=== PATIENT | male | born 1995 | race Caucasian/White ===

== ENCOUNTER 2020-01-01 21:27 | Emergency (ER) | payer SELFPAY ==
[2020-01-01 21:29] VITALS: BP 167/100; PULSE 117; RESP 17; TEMP 37.1; O2SAT 98; BMI 29.0
--- NOTE | 2020-01-01 21:43 | EKG12_ITS ---
Test Reason : CP Blood Pressure : / mmHG Vent. Rate : 110 BPM Atrial Rate : 110 BPM P-R Int : 140 ms QRS Dur : 086 ms QT Int : 342 ms P-R-T Axes : 038 040 019 degrees QTc Int : 462 ms Sinus tachycardia Otherwise normal ECG Confirmed by BRADY JHAVERI, [place] ([id number]), film editor JANELLE CID ([id number]) on 01/07/2020 8:13:20 AM Referred By: AYLEEN Confirmed By:[place] ABREU MD
--- NOTE | 2020-01-01 21:55 | RAD_ITS ---
STUDY: X-RAY CHEST REASON FOR EXAM: Male, 24 years old. CHEST PAIN TECHNIQUE: 1 view COMPARISON: None. FINDINGS: The lungs are clear and expanded. There is no demonstrated pleural abnormality. Normal size heart. Normal mediastinum and oleksandr. Normal visualized pulmonary arteries. Normal visualized aortic arch and descending thoracic aorta. Normal visualized thoracic spine. Normal visualized ribs, clavicles, and shoulders. There is no demonstrated abnormality of the visualized soft tissue structures of the upper abdomen. RAD/Chest 1 View (Portable) IMPRESSION: Normal x-ray examination of the chest. Electronically Signed: Anahi Mace MD at 22:22 EDT , Service support ,
[2020-01-01 22:07] LABS: Absolute Lymphocyte Count 2.76 X10^3/uL (0.83-4.51); Absolute Neutrophil Count 6.3 X10^3/uL (2.0-7.7); Basophil# 0.06 X10^3/uL; Basophil% 0.6 % (0-1); Eosinophil# 0.13 X10^3/uL; Eosinophils% 1.3 % (0-5); Hematocrit 47.9 % (40-54); Hemoglobin 16.6 g/dL (13.0-16.5); Lymphocyte # 2.76 X10^3/ul (4.0); Lymphocyte % 28.1 % (19-41); Mean Corp Hgb Conc 34.7 g/dL (32-36); Mean Corpuscular Hgb 30.4 pg (27.0-32.0); Mean Corpuscular Volume 87.7 fL (80-94); Mean Platelet Vol. 9.9 fl (6.2-12.0); Monocyte# 0.55 X10^3/uL; Monocyte% 5.6 % (0-10); NRBC Flagged by Analyzer 0 % (0-5); Neutrophil % 64.1 % (47-70); Platelet Count 260 K/mm3 (150-450); RBC Distribution Width CV 12.3 % (11.6-14.6); RBC Distribution Width SD 39.7 fl (35.1-43.9); Red Blood Count 5.46 M/mm3 (4.6-6.2); White Blood Count 9.8 K/mm3 (4.4-11.0)
[2020-01-01 22:14] VITALS: O2SAT 95
[2020-01-01 22:20] LABS: D-Dimer Quantitative (DVT/PE) < 0.27 FEU/ug/m (0.27-0.49)
[2020-01-01 22:21] LABS: Anion Gap 9 (5-15); BUN 15 mg/dL (7-18); BUN/Creat Ratio 13.6 RATIO (10-20); Calcium,Total 9.1 mg/dL (8.5-10.1); Chloride 107 mmol/L (98-107); EST Glomerular Filtration Rate 86 mL/min (>60); Est Glom Filt Rate - Afr Amer 104 mL/min (>60); Estimated Creatinine Clearance 95.14 ml/min; Glucose 109 mg/dL (74-106); Potassium 3.6 mmol/L (3.5-5.1); Sodium Level 142 mmol/L (136-145)
[2020-01-01 23:32] VITALS: BP 119/64; PULSE 75; RESP 16; O2SAT 96
--- NOTE | 2020-01-01 23:58 | ED.DCSUM_ITS ---
History of Present Illness Chief Complaint: Chest Pain Informant: Patient Onset: Today Narrative: 24-year-old male with no significant past medical history presents with chest pain. States he was at rest approximately 90 min ago when he felt a sharp pain in his chest. States it took his breath away. Was fleeting in nature. States it is happened 1 time since then. Denies any shortness of breath, nausea, vomiting, diaphoresis. Denies any history of DVT or pulmonary embolism. Patient is a current smoker. No family history of early cardiac disease. Past Medical History - Allergies and Home Meds Allergies/Adverse Reactions: Allergies No Known Allergies Allergy (Verified 01/01/20 21:28) Primary Care Physician: Care Physician,No Primary [Primary Care Provider] - Past Medical History: None Surgical History: no surgical history Lives: Spouse/ Significant Other Smoking Status: Current every day smoker Alcohol: None Drugs: None Review of Systems General: Denies: Chills, Fever, Sweats Eyes: Denies: Visual changes - bilaterally, Diplopia ENT: Denies: Rhinorrhea, Sore throat Cardiovascular: Reports: Chest pain. Denies: Palpitations Respiratory: Denies: Dyspnea, Cough, Dyspnea on exertion Gastrointestinal: Denies: Abdominal pain, Nausea, Vomiting, Diarrhea, Melena, Hematochezia Genitourinary: Denies: Dysuria, Hematuria, Frequency Musculoskeletal: Denies: Back pain, Extremity Pain Skin: Denies: Rash, Wounds Neurological: Denies: Headache, Weakness, Numbness Physical Exam Vital Signs/Narrative: Vital Signs Temp Pulse Resp BP Pulse Ox 01/01/20 23:32 75 16 119/64 96 01/01/20 22:14 95 01/01/20 21:29 98.8 F 117 H 17 167/100 H 98 Inital Vital Signs reviewed: Yes General: Well nourished, Well developed, No Acute Distress Head: Normocephalic, Atraumatic Eyes: Perrl, EOMI ENT: Moist mucous membranes, No rhinorrhea Neck: Supple, Nontender Cardiovascular: Regular rate, Regular rhythm, No murmurs Respiratory: No distress, CTA bilaterally, Chest nontender Abdomen: Soft, Nontender, Nondistended, Normal bowel sounds Back: Nontender, Normal Inspection Extremities: Nontender, No edema Skin: Normal color, No rash Neurological: Alert, Oriented x3, Cranial nerves II-XII grossly intact, Normal Strength, Normal Sensation Psychological: Normal affect, Normal Mood Diagnostic/Tx/Re-eval Chest X-Ray - ED: 1 View, Normal Clinical Impression(s) from Imaging Studies Chest X-Ray 01/01/20 21:55 IMPRESSION: Normal x-ray examination of the chest. Electronically Signed: Anahi Mace MD at 22:22 EDT , Service support , Laboratory Data 01/01/20 01/01/20 01/01/20 21:57 21:57 21:57 WBC 9.8 RBC 5.46 Hgb 16.6 H Hct 47.9 MCV 87.7 MCH 30.4 MCHC 34.7 RDW Std Deviation 39.7 RDW Coeff of Oma 12.3 Plt Count 260 MPV 9.9 Immature Gran % (Auto) 0.300 Neut % (Auto) 64.1 Lymph % (Auto) 28.1 [place] % (Auto) 5.6 Eos % (Auto) 1.3 Baso % (Auto) 0.6 Absolute Neuts (auto) 6.3 Absolute Lymphs (auto) 2.76 Nucleated RBC % 0 D-Dimer Quant (PE/DVT) < 0.27 L Sodium 142 Potassium 3.6 Chloride 107 Carbon Dioxide 26.0 Anion Gap 9 BUN 15 Creatinine 1.10 Estim Creat Clear Calc 95.14 Est GFR (MDRD) Af Amer 104 Est GFR (MDRD) Non-Af 86 BUN/Creatinine Ratio 13.6 Glucose 109 H Calcium 9.1 Troponin I < 0.015 - Rhythm Strip Rhythm Strip: Sinus Tach Rate: 110 Ectopy: None - EKG Initial EKG Interpretation: Sinus Tachycardia - Sinus tachycardia at 110 bpm. NJ interval 140 ms. QTC of 462 ms. No evidence of ST elevation or depression at this time. - Medical Decision Making Patient appears well nontoxic. Initially tachycardic so d-dimer was done which was negative. EKG nonischemic. Troponin negative. Patient offered 3-hour troponin which she declined. Other lab work within normal limits. Patient will be advised to follow-up with primary care. Asked to return for new or worsening symptoms. Patient agreeable and discharged home in stable condition. Impression: 1. Atypical chest pain ED Disposition - Plan for ED Patient: Disposition: Home or Assisted Living Instructions: ED Chest Pain Atypical Unkn Cause Referrals: Bijan Johnson MD [STAFF PHYSICIAN] - 2 Days
[2020-01-02 00:05] VITALS: BP 119/64; PULSE 75; RESP 16; O2SAT 96
== END 2020-01-02 00:11 | disposition home or self-care (01) ==
PROVIDERS: Emergency Provider Emergency Medicine
DX: R07.89 Other chest pain (principal); F17.200 Nicotine dependence, unspecified, uncomplicated
CPT/HCPCS: 71045; 80048; 84484; 85025; 85379; 93005; 94760; 99281; 99285; A4216